=== PATIENT | female | born 2000 | race Caucasian/White ===

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

== ENCOUNTER 2018-10-14 16:57 | Inpatient (IN) ==
[2018-10-14] MEDS ORDERED: Sod Chloride 0.9% Inj 1,000 ML IV.SIG ONE (17:16)
[2018-10-14] MEDS ORDERED: Morphine Inj 4 MG/ML Vial IV.PUSH ONE (17:16)
--- NOTE | 2018-10-14 17:20 | ED ---
HPI General Chief complaint: Urogenital-Female Stated complaint: flank pain Time Seen by Provider: 10/14/18 17:07 Source: patient and other (Friend) Mode of arrival: ambulatory Limitations: no limitations History of Present Illness HPI narrative: 17-year-old female here for evaluation of left flank pain. Patient reports history of kidney stone. She was first diagnosed with this about a year ago and has had intermittent pain which has worsened today. Pain is sharp and radiates to her left lower abdomen, moderate to severe, intermittently worse at times, no modifying factors. No dysuria or hematuria. She has become nauseous but has not vomited. No fevers or chills. She is currently at the end of her menstrual cycle. She denies vaginal discharge other than slight bleeding from her menstrual period. She denies alcohol, tobacco, or illicit drug use. Related Data Home Medications Medication Instructions Recorded Confirmed No Known Home Medications 10/14/18 10/14/18 Allergies Allergy/AdvReac Type Severity Reaction Status Date / Time No Known Allergies Allergy Verified 10/14/18 16:59 Review of Systems ROS: all other systems reviewed are negative [facility] Medical History Medical History History of kidney stones (Acute) Surgical History Surgical History No history of previous surgery (Acute) Social History Social History Substance History: No History of Abuse Smoking Status: Never smoker How Often Do You Have a Drink Containing Alcohol: Never Recent Travel in [facility] within the Last 8 Weeks: No Recent Out of Country Travel within the Last 8 Weeks: No Exam Narrative Exam Narrative: GENERAL: Well-developed, well-nourished, comfortable, no apparent distress. SKIN: Focused skin assessment warm/dry. No rash. HEAD: Atraumatic. Normocephalic. EYES: Pupils equal and round. No scleral icterus. No injection or drainage. ENT: Mucous membranes pink and moist. NECK: Trachea midline. No JVD. CARDIOVASCULAR: Regular rate and rhythm. RESPIRATORY: No accessory muscle use. Clear to auscultation. Breath sounds equal bilaterally. GASTROINTESTINAL: Abdomen soft, non-tender, nondistended. MUSCULOSKELETAL: No obvious deformities. No clubbing. No cyanosis. No edema. Mild left CVA tenderness. No right CVA tenderness. No midline vertebral step- off or tenderness. NEUROLOGICAL: Awake and alert. No obvious cranial nerve deficits. Motor grossly within normal limits. Normal speech. PSYCHIATRIC: Appropriate mood and affect; insight and judgment normal. Course Initial Documented Vital Signs Temperature 98.1 F 10/14/18 17:00 Pulse Rate 94 H 10/14/18 17:00 Respiratory Rate 16 10/14/18 17:00 Blood Pressure 164/85 H 10/14/18 17:00 Pulse Oximetry 98 10/14/18 17:00 Last Documented Vital Signs Temperature 98.1 F 10/14/18 17:00 Pulse Rate 93 H 10/14/18 18:02 Respiratory Rate 20 10/14/18 18:02 Blood Pressure 155/83 H 10/14/18 18:02 Pulse Oximetry 100 10/14/18 18:02 Medical Decision Making MDM Narrative Medical decision making narrative: Vital signs reviewed. CBC shows a slight leukocytosis of 14.7. CMP is essentially unremarkable. UA is not suggestive of UTI. There are calcium oxalate crystals. Urine test is negative. CT abdomen pelvis: CONCLUSION: 1. Severe left hydronephrosis and hydroureter identified with a 7 mm obstructing distal left ureteral calculus. I discussed the case with on-call urologist Dr. Lyons. Patient will benefit from ureteral stenting with possible stone extraction that can be performed tomorrow morning at the [facility] by him. I discussed this with the patient and the patient's mom who is now at the bedside, and she is happy with this plan. We will arrange to transfer the patient to the [facility]. She was given 4 mg of morphine intravenously with significant improvement in her pain. Case discussed with hospitalist Dr. Peña who will admit the patient to his service. Medical Screen Exam Complete: Yes Emergency Medical Condition: Yes Differential Diagnosis Differential Diagnosis: Nephrolithiasis, ureterolithiasis, pyelonephritis, UTI, ovarian cyst, , ectopic , gastritis Lab Data Result diagrams: 10/14/18 17:30 10/14/18 17:30 POC Results POC Urine Results Negative Lab Results 10/14/18 10/14/18 10/14/18 Range/Units 17:21 17:30 17:30 CBC w Diff Auto diff final WBC 14.7 H (4.0-11.0) th/mm3 RBC 4.08 (4.00-5.30) mil/mm3 Hgb 12.8 (11.6-15.3) gm/dL Hct 37.4 (35.0-46.0) % MCV 91.7 (80.0-100.0) fL MCH 31.4 (27.0-34.0) pg MCHC 34.3 (32.0-36.0) % RDW 11.7 (11.6-17.2) % Plt Count 402 (150-450) th/mm3 MPV 8.2 (7.0-11.0) fL Neut % (Auto) 67.5 (16.0-70.0) % Lymph % (Auto) 22.0 (9.0-44.0) % [place] % (Auto) 9.2 H (0.0-8.0) % Eos % (Auto) 0.7 (0.0-4.0) % Baso % (Auto) 0.6 (0.0-2.0) % Neut # (Auto) 9.9 H (1.8-7.7) th/mm3 Lymph # (Auto) 3.2 (1.0-4.8) th/mm3 [place] # (Auto) 1.4 H (0.0-0.9) th/mm3 Eos # (Auto) 0.1 (0.0-0.4) th/mm3 Baso # (Auto) 0.1 (0.0-0.2) th/mm3 WBC Differential . Differential Comment . Sodium 139 (136-145) meq/L Potassium 3.5 (3.5-5.1) meq/L Chloride 107 (98-107) meq/L Carbon Dioxide 24.4 (21.0-32.0) meq/L Anion Gap 8 (5-15) meq/L BUN 12 (7-18) mg/dL Creatinine 0.81 (0.50-1.00) mg/dL Estimated GFR Greater than 89 (>89) mL/min Random Glucose 82 (74-106) mg/dL Calcium 8.7 (8.5-10.1) mg/dL Magnesium 2.1 (1.5-2.5) mg/dL Total Bilirubin 0.6 (0.2-1.0) mg/dL AST 15 L (16-38) U/L ALT 23 (9-42) U/L Alkaline Phosphatase 85 (45-117) U/L Total Protein 7.3 (6.4-8.2) g/dL Albumin 4.4 (3.4-5.0) g/dL Lipase 65 L (73-393) U/L Urine Color Yellow (Yellw/Straw) Urine Clarity Clear (Clear) Urine pH 6.0 (5.0-8.5) Ur Specific [place] Greater/equal 1.030 (1.002-1.035) Urine Protein Trace (Neg-Trace) mg/dL Urine Glucose (UA) Negative (Negative) mg/dL Urine Ketones 40 H (Negative) mg/dL Urine Occult Blood Negative (Negative) Urine Nitrate Negative (Negative) Urine Bilirubin Negative (Negative) Urine Urobilinogen 0.2 (Less than 2) mg/dL Ur Leukocyte Esterase Negative (Negative) Urine RBC 0-3 (0-3) /hpf Urine WBC 0-5 (0-5) /hpf Ur Squamous Epith Cells 0-5 (0-5) /hpf Calcium Oxalate Crystal Few H (None) /hpf Urine Bacteria Few H (None) /hpf Urine Mucus Moderate H (Occasional) /lpf Micro UA Comment Culture not ind Ur Microscopic Review Microscopic reviewed Urine Culture Comments Culture not ind Imaging Data Radiologist's impression: Abdomen/Pelvis CT 10/14/18 17:16 CONCLUSION: 1. Severe left hydronephrosis and hydroureter identified with a 7 mm obstructing distal left ureteral calculus. Discharge Plan Discharge Disposition Patient Disposition: ED Admit(ED Internal Use Only) Discharge Condition Condition: Stable Discharge Order Discharge Orders: ED Use Only Admit Order (Routine); Ordered 10/14/18 Ordered By: Mino Zhang Discharge Details Diagnosis: Hydroureter on left, Ureterolithiasis Physicians Team ED Provider: Mino Zhang Primary Care Provider: Primary Care Physici,Saranya Rxs /Orders / Referrals /Forms Prescriptions: No Action No Known Home Medications RF: 0 Status ED Status: With Doctor
[2018-10-14 17:42] LABS: Baso # (Auto) 0.1 th/mm3 (0.0-0.2); Baso % (Auto) 0.6 % (0.0-2.0); Eos # (Auto) 0.1 th/mm3 (0.0-0.4); Eos % (Auto) 0.7 % (0.0-4.0); Hematocrit 37.4 % (35.0-46.0); Hemoglobin 12.8 gm/dL (11.6-15.3); Lymph # (Auto) 3.2 th/mm3 (1.0-4.8); Mean Corpuscular HGB Conc 34.3 % (32.0-36.0); Mean Corpuscular Hemoglobin 31.4 pg (27.0-34.0); Mean Corpuscular Volume 91.7 fL (80.0-100.0); Mean Platelet Volume 8.2 fL (7.0-11.0); Mono # (Auto) 1.4 th/mm3 (0.0-0.9); Mono % (Auto) 9.2 % (0.0-8.0); Neut # (Auto) 9.9 th/mm3 (1.8-7.7); Neut % (Auto) 67.5 % (16.0-70.0); Platelet Count 402 th/mm3 (150-450); Red Blood Count 4.08 mil/mm3 (4.00-5.30); Red Cell Distribution Width 11.7 % (11.6-17.2); White Blood Count 14.7 th/mm3 (4.0-11.0)
[2018-10-14 17:44] LABS: Bilirubin,Urine Negative (Negative); Clarity,Urine Clear (Clear); Color,Urine Yellow (Yellw/Straw); Glucose,Urine (UA) Negative (Negative); Leukocyte Esterase,Urine Negative (Negative); Nitrite,Urine Negative (Negative); Specific Gravity,Urine Greater/Equal 1.030 (1.002-1.035); Urobilinogen,Urine 0.2 mg/dL (Less than 2)
[2018-10-14 17:49] LABS: Chloride 107 meq/L (98-107); Potassium 3.5 meq/L (3.5-5.1); Sodium 139 meq/L (136-145)
[2018-10-14 17:50] LABS: Calcium Oxalate Crystals,Urine Few /hpf; RBC,Urine 0-3 /hpf (0-3); Squamous Epithelial Cell,Urine 0-5 /hpf (0-5); WBC,Urine 0-5 /hpf (0-5)
[2018-10-14 17:51] LABS: Bacteria,Urine Few /hpf; Mucus,Urine Moderate /lpf (Occasional)
[2018-10-14 17:53] LABS: Albumin 4.4 g/dL (3.4-5.0); Calcium 8.7 mg/dL (8.5-10.1)
[2018-10-14 17:54] LABS: Anion Gap 8 meq/L (5-15); Blood Urea Nitrogen 12 mg/dL (7-18); Carbon Dioxide 24.4 meq/L (21.0-32.0); Glucose,Random 82 mg/dL (74-106); Lipase 65 U/L (73-393); Magnesium 2.1 mg/dL (1.5-2.5)
[2018-10-14 17:57] LABS: Alanine Aminotransferase 23 U/L (9-42); Aspartate Aminotransferase 15 U/L (16-38); Glomerular Filtration Rate Greater Than 89 mL/min (>89)
[2018-10-14 17:58] LABS: Total Protein 7.3 g/dL (6.4-8.2)
--- NOTE | 2018-10-14 17:58 | CT ---
EXAM DATE: 10/14/2018 5:51 PM EST AGE/SEX: 17 years / Female INDICATIONS: Left flank pain that radiates to lower abdomen. CLINICAL DATA: This is the patient's initial encounter. Patient reports that signs and symptoms have been present for 1 week and indicates a pain score of 8/10. MEDICAL/SURGICAL HISTORY: Renal calculi. None. RADIATION DOSE: 4.12 CTDI (mGy) COMPARISON: HH, CT ABDOMEN & PELVIS W/O CONTRAST, 09/28/2017. . TECHNIQUE: Multiple contiguous axial images were obtained through the abdomen. Images were obtained using multiple row detector helical technique. Using automated exposure control and adjustment of the mA and/or kV according to patient size, radiation dose was kept as low as reasonably achievable to o btain optimal diagnostic quality images. DICOM format image data is available electronically for rev iew and comparison. FINDINGS: The lung bases are clear. The osseous structures are intact. There is a 6.9 mm calculus noted at the left distal ureter just proximal to the ureterovesical junction. There is severe left hydronephrosis and hydroureter identified. There is no perinephric stranding. No obvious renal calculi. Urinary blad beena, uterus and adnexa are within normal limits. The spleen, pancreas, adrenals, liver and gallbladde r, small bowel, large bowel and appendix are normal in appearance. No adenopathy or aneurysm. CONCLUSION: 1. Severe left hydronephrosis and hydroureter identified with a 7 mm obstructing distal left uretera l calculus. Electronically signed by: Yomi Fuller MD Board Certified Radiologist 10/14/2018 5:56 PM EST
[2018-10-14 17:59] LABS: Alkaline Phosphatase 85 U/L (45-117)
[2018-10-14] MEDS ORDERED: Acetaminophen 325 MG Tablet PO PRN (19:00)
[2018-10-14] MEDS ORDERED: HYDROmorphone PF Inj 2 MG/ML Vial IV.PUSH PRN (19:02)
[2018-10-14] MEDS: Sod Chloride 0.9% Inj 1,000 ML IV.CONT SCH (19:10)
[2018-10-14] MEDS: HYDROmorphone PF Inj 0.5 MG/0.5 ML Syringe IV.PUSH PRN (20:54)
[2018-10-15] MEDS: Sod Chloride 0.9% Inj 1,000 ML IV.CONT SCH ×3 (05:30→22:11)
[2018-10-15 05:53] LABS: Baso % (Auto) 0.5 % (0.0-2.0); Eos # (Auto) 0.2 th/mm3 (0.0-0.4); Eos % (Auto) 1.9 % (0.0-4.0); Hematocrit 32.5 % (35.0-46.0); Hemoglobin 11.2 gm/dL (11.6-15.3); Lymph # (Auto) 2.8 th/mm3 (1.0-4.8); Lymph % (Auto) 31.2 % (9.0-44.0); Mean Corpuscular HGB Conc 34.3 % (32.0-36.0); Mean Corpuscular Hemoglobin 32.1 pg (27.0-34.0); Mean Corpuscular Volume 93.4 fL (80.0-100.0); Mean Platelet Volume 8.3 fL (7.0-11.0); Mono # (Auto) 0.8 th/mm3 (0.0-0.9); Mono % (Auto) 9.3 % (0.0-8.0); Neut # (Auto) 5.1 th/mm3 (1.8-7.7); Neut % (Auto) 57.1 % (16.0-70.0); Platelet Count 321 th/mm3 (150-450); Red Blood Count 3.48 mil/mm3 (4.00-5.30); Red Cell Distribution Width 11.5 % (11.6-17.2); White Blood Count 8.9 th/mm3 (4.0-11.0)
[2018-10-15 05:55] LABS: Chloride 111 meq/L (98-107); Potassium 3.7 meq/L (3.5-5.1); Sodium 140 meq/L (136-145)
[2018-10-15 06:05] LABS: Alanine Aminotransferase 26 U/L (9-42); Albumin 3.4 g/dL (3.4-5.0); Alkaline Phosphatase 70 U/L (45-117); Anion Gap 7 meq/L (5-15); Aspartate Aminotransferase 20 U/L (16-38); Blood Urea Nitrogen 8 mg/dL (7-18); Calcium 7.5 mg/dL (8.5-10.1); Carbon Dioxide 21.8 meq/L (21.0-32.0); Glomerular Filtration Rate Greater Than 89 mL/min (>89); Glucose,Random 82 mg/dL (74-106); Total Protein 5.7 g/dL (6.4-8.2)
[2018-10-15] MEDS: Lactobacillus Acidophilus/L. Spores Tablet PO SCH ×4 (08:43→19:59)
--- NOTE | 2018-10-15 12:22 | MB ---
cc: Ariel Lyonsn Rosalee DATE: 10/15/2018 HISTORY OF PRESENT ILLNESS: This is a pleasant 17-year-old female who presented with left-sided flank pain. She has a history of a left UVJ stone and CAT scan on admission confirmed the presence of a 7 mm stone causing severe hydronephrosis on the left side. She denies any prior history of stones or any voiding complaints. MEDICAL HISTORY: Denies any history of medical problems other than this kidney stone. PAST SURGICAL HISTORY: No prior surgeries noted. SOCIAL HISTORY: Denies smoking, drinking or using drugs. FAMILY HISTORY: No family history of stones are noted. ALLERGIES: NO KNOWN DRUG ALLERGIES. MEDICATIONS: None. REVIEW OF SYSTEMS: Left-sided flank pain is noted with left CVA tenderness with some nausea and vomiting. The remaining review of systems were reviewed and were negative. PHYSICAL EXAMINATION: VITAL SIGNS TODAY: Temperature 98.7, heart rate 77, respiratory rate 16, 112/70s is the blood pressure. GENERAL: Well-developed, well-nourished, 17-year-old female in no acute distress. HEENT: Normocephalic, atraumatic. Pupils equal, round and reactive to light. Extraocular movements intact. NECK: Supple. HEART: Regular rate and rhythm. LUNGS: Clear. ABDOMEN: Soft, nontender, nondistended. There is left CVA tenderness noted. GENITOURINARY: Normal female external genitalia. EXTREMITIES: Show no cyanosis, clubbing, or edema. NEUROLOGIC: Cranial nerves 2 through 12 are intact. LABORATORY DATA: White count 8.9, hemoglobin 11.2, hematocrit 32.5, platelet count of 321. Sodium 140, potassium 3.7, chloride 111, CO2 21.8, BUN of 8, creatinine 0.55, glucose of 82. Urinalysis shows a 0-3 reds and 0-5 white cells; there are a few calcium oxalate crystals noted. IMAGING STUDIES: CT scan shows a 7 mm stone at the left UVJ with severe hydronephrosis. ASSESSMENT AND PLAN: A 17-year-old female with a 7 mm stone at the left ureterovesical junction causing obstruction and severe hydronephrosis. Recommend cystoscopy with left ureteroscopy, laser lithotripsy and stone extraction, possible stent insertion. Risks and benefits were discussed including bleeding, infection, ureteral injury. The patient is willing to proceed. Continue n.p.o. Thank you for the consult. DO EULALIA Sevilla/randa , 11:51 AM , 12:07 PM
[2018-10-15] MEDS ORDERED: Chlorhexidine Gluconate 2% 1 Pack (2 Cloths) TOPICAL ONE (16:33)
[2018-10-15] MEDS ORDERED: Metoprolol Tartrate 25 MG Tablet PO ONE (16:33)
[2018-10-15] MEDS ORDERED: Sodium Chlor 0.9% Inj 500 ML IV.SIG SCH (17:00)
--- NOTE | 2018-10-15 19:07 | P.HPIM ---
History of Present Illness Service: Hospitalist Primary Care Physician: No Primary Care Physician Chief Complaint: Left flank pain History of Present Illness: Ms. Washburn is a pleasant 17 year old female with a year long kidney stone history who presents to the emergency department at [facility] due to Left sided flank pain. She has had kidney stone related pain for over a year now. However, due to worsening of her symptoms she decided to come to the emergency department. She denies any dysuria , hematuria, fever or chills. She denies any chest pain, shortness of breath, abdominal pain. No changes in bowel habits. Urology was consulted due to CT findings of severe left sided hydronephrosis and hydroureter and a 7mm obstructing ureteral stone. Past medical history: kidney stone for one year. Past surgical history: no significant surgeries in the past. Social history: patient denies using tobacco, alcohol, illicit drugs. Family history: significant for kidney stone in her father. Inpatient Certification Inpatient Certification: I certify that the inpatient services were ordered in accordance with Medicare regulations governing the order. This includes certification that hospital inpatient services are reasonable and necessary and in the case of services not specified as inpatient-only under 42 CFR 419.22(n), that they are appropriately provided as inpatient services in accordance to with the 2-midnight benchmark under 43 CFR 412.3(e) Estimated Total Length of Stay (Days): 2 Plans for Post Hospital Care: Home Review of Systems Review of Systems: all other systems reviewed are negative [facility] Medical History Medical History History of kidney stones (Acute) Surgical History Surgical History No history of previous surgery (Acute) Social History Social History Substance History: No History of Abuse Smoking Status: Never smoker How Often Do You Have a Drink Containing Alcohol: Never Recent Travel in [facility] within the Last 8 Weeks: No Recent Out of Country Travel within the Last 8 Weeks: No Immunization History Tetanus Immunization: >5 Years Medications and Allergies Allergies Allergy/AdvReac Type Severity Reaction Status Date / Time No Known Allergies Allergy Verified 10/14/18 16:59 Home Medications Medication Instructions Recorded Confirmed Type No Known Home Medications 10/14/18 10/14/18 History Active Medications: Active Medications Acetaminophen (Tylenol) 650 mg PO Q4H PRN PRN Reason: Temp > 100.4 Al Hydroxide/Mg Hydroxide (Milk Of Magnesia Liq) 30 ml PO Q12H PRN PRN Reason: Mild Constipation Hydromorphone HCl (Dilaudid Pf Inj) 0.5 mg IV.PUSH Q4H PRN PRN Reason: Pain 3 to 6 Last Admin: 10/14/18 20:54 Dose: 0.5 mg Hydromorphone HCl (Dilaudid Pf Inj) 1 mg IV.PUSH Q4H PRN PRN Reason: Pain 7 to 10 Ceftriaxone Sodium 1,000 mg/ (Sodium Chloride) 100 mls @ 200 mls/hr IV.SIG Q24H [facility] [place] Last Infusion: 10/14/18 19:59 Dose: Infused Sodium Chloride (Ns Inj) 1,000 mls @ 100 mls/hr IV.CONT .Q10H [facility] [place] Last Infusion: 10/15/18 14:04 Dose: 100 mls/hr Lactated Ringer's (Lr 1000 Ml Inj) 1,000 mls @ 30 mls/hr IV.SIG .Q24H [facility] Stop: 10/16/18 16:44 Last Admin: 10/15/18 16:10 Dose: 30 mls/hr Sodium Chloride (Ns Inj) 500 mls @ 30 mls/hr IV.SIG .Q10H [facility] [place] Last Admin: 10/15/18 16:46 Dose: Not Given Lactobacillus Acidophilus (Lactinex) 1 tab PO TID [facility] [place] Last Admin: 10/15/18 13:00 Dose: Not Given Ondansetron HCl (Zofran Inj) 4 mg IV.PUSH Q6H PRN PRN Reason: NAUSEA OR VOMITING Last Admin: 10/14/18 21:30 Dose: 4 mg Sodium Chloride (Ns Flush) 2 ml IV.FLUSH BID [facility] [place] Last Admin: 10/15/18 08:43 Dose: Not Given Sodium Chloride (Ns Flush) 2 ml IV.FLUSH PRN PRN PRN Reason: FLUSH AFTER USING IV ACCESS Physical Exam Vital signs: Vital Signs 10/14/18 19:58 10/14/18 23:23 10/15/18 02:00 Temperature Pulse Rate 98 H 86 Respiratory Rate 18 20 Blood Pressure 149/77 H 128/70 Pulse Oximetry 100 100 98 10/15/18 02:26 10/15/18 05:28 10/15/18 07:08 Temperature 98.7 F Pulse Rate 83 70 77 Respiratory Rate 16 16 16 Blood Pressure 116/64 104/57 L 112/70 Pulse Oximetry 100 100 02/19/19 11:58 10/15/18 16:59 Temperature 99.0 F Pulse Rate 70 84 Respiratory Rate 16 18 Blood Pressure 112/67 121/67 Pulse Oximetry 100 Intake & Output 10/14/18 10/15/18 10/15/18 18:59 06:59 18:59 Intake Total 1000 / 1000 1100 / 1100 Balance 1000 / 1000 1100 / 1100 Weight 48.5 kg Intake: IV 1000 / 1000 1100 / 1100 NS Inj 1,000 ML @ 100 mls/hr IV 1000 / 1000 .CONT .Q10H [facility] Rx#:[id number] NS Inj 1,000 ML @ Wide Open IV. 1000 / 1000 SIG BOLUS ONE Rx#:[id number] Rocephin Inj 1,000 MG In NS Inj 100 / 100 100 ML @ 200 mls/hr IV.SIG Q24H [facility] Rx#:[id number] Narrative: GENERAL: This is a well-nourished, well-developed patient, in no apparent distress. SKIN: No rashes, ecchymoses or lesions. Warm and dry. HEAD: Atraumatic. Normocephalic. No temporal or scalp tenderness. EYES: Pupils equal round and reactive. No injection or drainage. ENT: Nose without bleeding, purulent drainage or septal hematoma. Airway patent. NECK: Trachea midline. No lymphadenopathy. Supple, nontender, no meningeal signs. CARDIOVASCULAR: Regular rate and rhythm without murmurs, gallops, or rubs. No JVD. RESPIRATORY: Clear to auscultation. Breath sounds equal bilaterally. No wheezes , rales, or rhonchi. GASTROINTESTINAL: Abdomen soft, non-tender, nondistended. No guarding. No CVA tenderness noted. MUSCULOSKELETAL: Extremities without clubbing, cyanosis, or edema. NEUROLOGICAL: Awake and alert. Cranial nerves II through XII intact. No focal neurological deficits. Normal speech. Results Labs CBC & Chem 7: 10/15/18 05:35 10/15/18 05:35 Caprini VTE Risk Assessment Caprini VTE Risk Assessment: No/Low Risk (score <= 1) Caprini Risk Assessment Model: Point Value = 1 Point Value = 2 Point Value = 3 Point Value = 5 Age 41-60 Minor surgery BMI > 25 kg/m2 Swollen legs Varicose veins or History of unexplained or recurrent spontaneous Oral contraceptives or hormone replacement Sepsis (< 1 month) Serious lung disease, including pneumonia (< 1 month) Abnormal pulmonary function Acute myocardial infarction Congestive heart failure (< 1 month) History of inflammatory bowel disease Medical patient at bed rest Age 61-74 Arthroscopic surgery Major open surgery (> 45 min) Laparoscopic surgery (> 45 min) Malignancy Confined to bed (> 72 hours) Immobilizing plaster cast Central venous access Age >= 75 History of VTE Family history of VTE Factor V Leiden Prothrombin [id number] Lupus anticoagulant Anticardiolipin antibodies Elevated serum homocysteine Heparin-induced thrombocytopenia Other congenital or acquired thrombophilia Stroke (< 1 month) Elective arthroplasty Hip, pelvis, or leg fracture Acute spinal cord injury (< 1 month) Prophylaxis Regimen: Total Risk Factor Score Risk Level Prophylaxis Regimen 0-1 Low Early ambulation 2 Moderate Order ONE of the following: *Sequential Compression Device (SCD) *Heparin 5000 units SQ BID 3-4 Higher Order ONE of the following medications: *Heparin 5000 units SQ TID *Enoxaparin/Lovenox 40 mg SQ daily (WT < 150 kg, CrCl > 30 mL/min) *Enoxaparin/Lovenox 30 mg SQ daily (WT < 150 kg, CrCl > 10-29 mL/min) *Enoxaparin/Lovenox 30 mg SQ BID (WT < 150 kg, CrCl > 30 mL/min) AND/OR *Sequential Compression Device (SCD) 5 or more Highest Order ONE of the following medications: *Heparin 5000 units SQ TID (Preferred with Epidurals) *Enoxaparin/Lovenox 40 mg SQ daily (WT < 150 kg, CrCl > 30 mL/min) *Enoxaparin/Lovenox 30 mg SQ daily (WT < 150 kg, CrCl > 10-29 mL/min) *Enoxaparin/Lovenox 30 mg SQ BID (WT < 150 kg, CrCl > 30 mL/min) AND *Sequential Compression Device (SCD) Assessment and Plan Plan Ms. Washburn is a pleasant 17 year old female with a history of kidney stone for 1 year who presents to the emergency department due to worsening Left flank pain. She denies any fever or chills. Also denies any dysuria, hematuria. Severe left sided hydronephrosis Severe left sided hydroureter Left ureteral obstructive calculus 7mm -patient is currently on ceftriaxone 1g Q24hrs. -Urology consulted. Patient would likely undergo ureteral stent placement tonight. -0.5mg Dilaudid IV Q4hrs PRN for pain control. -Likely discharge in the morning. -Upon discharge, will continue Bactrim DS for 3 days as well as Tramadol 50mg Q6hrs #10 Full code. Ambulation.
[2018-10-15] MEDS ORDERED: fentaNYL Citrate Inj 250 MCG/5 ML Ampul ONE (19:42)
[2018-10-15] MEDS ORDERED: cefTRIAXone Inj 1,000 MG Vial ONE (19:43)
[2018-10-15] MEDS ORDERED: Neostigmine Inj 5 MG/5 ML Syringe IV.PUSH ONE (19:52)
[2018-10-15] MEDS ORDERED: Lidocaine PF 1% Inj 5 ML Syringe OTHER ONE (19:52)
[2018-10-15] MEDS ORDERED: Glycopyrrolate Inj 1 MG/5 ML Syringe IV.PUSH ONE (19:52)
[2018-10-15] MEDS ORDERED: Iohexol Inj 350 MG/ML 100 ML Bottle (for RAD Diag) IVCONTRAST ONE (20:18)
[2018-10-15] MEDS ORDERED: Acetaminophen 325 MG Tablet PO PRN ×2 (20:36)
[2018-10-15] MEDS ORDERED: Aluminum/Magnesium/Simethacone Susp 30 ML UDC PO PRN (20:36)
[2018-10-15] MEDS ORDERED: Acetaminophen 325 MG Tablet PO ONE (20:45)
[2018-10-15] MEDS ORDERED: Belladonna Alkaloid/Opium 60 MG Supp RECTAL PRN (20:47)
[2018-10-15 22:30] VITALS: RESP 16
[2018-10-16] MEDS: Sod Chloride 0.9% Inj 1,000 ML IV.CONT SCH (02:28)
[2018-10-16] MEDS: HYDROmorphone PF Inj 0.5 MG/0.5 ML Syringe IV.PUSH PRN (05:28)
--- NOTE | 2018-10-16 07:23 | MP ---
cc: Quan Lyons DO DATE OF OPERATION: 10/15/2018 PREOPERATIVE DIAGNOSIS: Distal left ureteral stone with hydronephrosis. POSTOPERATIVE DIAGNOSIS: Distal left ureteral stone with hydronephrosis. PROCEDURE PERFORMED: Cystoscopy, balloon dilatation of left distal ureter, left ureteroscopy with laser lithotripsy, stone extraction with left double-J stent insertion. SURGEON: Quan Lyons DO ANESTHESIA: General endotracheal tube. FLUIDS: 1 L of crystalloid. DRAINS: A 6-Macedonian 22 cm left double-J stent. COMPLICATIONS: There were no complications. SPECIMENS: Stone fragments. These were sent to pathology. CONDITION: The patient tolerated the procedure well and was stable throughout the entire case. INDICATIONS FOR PROCEDURE: Ms. Washburn is a 17-year-old female who presented to the emergency room with findings of a 7 mm distal left ureteral stone on CT scan. Decision was made to bring the patient to the operating room and undergo cystoscopy, left ureteroscopy with laser lithotripsy and stone extraction and possible stent insertion. Risks and benefits were discussed preoperatively with the patient including bleeding, infection, and ureteral injury and she is willing to proceed. DESCRIPTION OF PROCEDURE: The patient was brought to the operating room and identified by myself as Khadra Washburn. She was placed in dorsal lithotomy position, prepped and draped in sterile fashion, received preprocedure antibiotics, and general endotracheal tube anesthesia was administered. A 22-Macedonian cystoscope was inserted in the bladder and pancystoscopy did not reveal any abnormalities. A 0.35 sensor wire was then passed into the left ureteral orifice and up into the kidney under fluoroscopic imaging. Attempt was made to then pass the rigid ureteroscope along the wire up into the ureter, but this was unsuccessful. The cystoscope was then backloaded over the wire and the UroMax balloon dilatation system was utilized. The balloon was placed in the distal ureter and inflated to 12 mmHg and held for 2 minutes. The balloon was then deflated and removed. The rigid ureteroscope was then passed along the wire into the distal ureter and the stone was visualized. Using a 200-micron laser fiber at a setting of ____ fragmentation of the stone was completed. The stone fragments were retrieved with a nitinol basket and sent to pathology. Once the ureter was clear, a decision was made to then place a 6-Macedonian 22 cm left double-J stent. This was placed using the cystoscope over the wire and was placed in good position. The bladder was evacuated and she was awakened and extubated and transferred to recovery room in stable condition. She tolerated the procedure well. She will follow up in the office in 2 weeks to undergo cystoscopy with stent removal at that time. DO EULALIA Sevilla/sv/rr , 08:55 PM , 09:01 PM
[2018-10-16] MEDS: Lactobacillus Acidophilus/L. Spores Tablet PO SCH (08:49)
--- NOTE | 2018-10-16 09:02 | P.DS ---
DS: Providers Date of admission: 10/14/18 19:07 Primary care physician: No Primary Care Physician Brief History from admission: Ms. Washburn is a pleasant 17 year old female with a year long kidney stone history who presents to the emergency department at [facility] due to Left sided flank pain. She has had kidney stone related pain for over a year now. However, due to worsening of her symptoms she decided to come to the emergency department. She denies any dysuria , hematuria, fever or chills. She denies any chest pain, shortness of breath, abdominal pain. No changes in bowel habits. Urology was consulted due to CT findings of severe left sided hydronephrosis and hydroureter and a 7mm obstructing ureteral stone. Past medical history: kidney stone for one year. Past surgical history: no significant surgeries in the past. Social history: patient denies using tobacco, alcohol, illicit drugs. Family history: significant for kidney stone in her father. DS: Summary Patient is a 17 year old female presenting with flank pain secondary to stone and seen by urology where she was taken to OR for stone retraction and placement of ureteral stent. Patient clinically stable for discharge and outpatient follow p urology in 2 weeks for stent retraction. Patient precribed 3 days cipro and pain medication as needed. Patient also to follow up with her PMD as an outpatient in 1-2 weeks. Time Spent with Patient Total time spent providing and/or coordinating discharge services: > 30 min Patient is a 17 year old female presenting with flank pain secondary to stone and seen by urology where she was taken to OR for stone retraction and placement of ureteral stent. Patient clinically stable for discharge and outpatient follow p urology in 2 weeks for stent retraction. Patient precribed 3 days cipro and pain medication as needed. Patient also to follow up with her PMD as an outpatient in 1-2 weeks. Quality: VTE Deep Vein Thrombosis/Pulmonary Embolism Present on Admission: No Exam Narrative Exam Narrative: urology: NO CVA tenderness Results Pending studies at discharge: Pending at discharge 10/15/18 Surgical [PTH] Routine Impressions ITS Impressions Abdomen/Pelvis CT 10/14/18 17:16 CONCLUSION: 1. Severe left hydronephrosis and hydroureter identified with a 7 mm obstructing distal left ureteral calculus. Discharge Plan Discharge Disposition Patient Disposition: 01 Discharge Home Discharge Condition Condition: Stable Discharge Order Discharge Orders: Discharge Order (Routine); Ordered 10/16/18 Ordered By: Rafael Peña Discharge Details Anticipated Discharge Date: 10/16/18 Discharge Comment: scripts are in the chart written by urology. discharge in afternoon by 12. urology will see her before Physicians Team Primary Care Provider: Primary Care Saranya King Attending Provider: Rafael Peña Rxs /Orders / Referrals /Forms Prescriptions: New oxycodone-acetaminophen [Percocet] 5-325 mg tablet 1 tab PO Q4H PRN (Reason: pain) Qty: 18 RF: 0 ciprofloxacin HCl [Cipro] 500 mg tablet 500 mg PO Q12H 3 Days Qty: 6 RF: 0 phenazopyridine [Pyridium] 100 mg tablet 100 mg PO TID PRN (Reason: pain) Qty: 30 RF: 0 No Action No Known Home Medications RF: 0 Referrals: Primary Care Saranya King [Primary Care Provider] - See Instructions Quan Lyons DO [UROLOGY] - See Instructions (please call for follow up appointment in 2 weeks for stent removal) Stand Alone Forms: School Release Discharge Instructions Additional Instructions: please follow up urology outpatient as instructed in 2 weeks. Call for appointment once discharged Status ED Status: Left Department
[2018-10-16 09:57] VITALS: BP 117/66; PULSE 76; TEMP 98.4; O2SAT 100
--- NOTE | 2018-10-16 10:28 | P.PNURO ---
Subjective Patient symptoms today: Pt seen and examined. Feels better. Objective Vital Signs: Vital Signs 10/15/18 11:58 10/15/18 16:59 10/15/18 20:52 Temperature 99.0 F 98.7 F Pulse Rate 70 84 109 H Respiratory Rate 16 18 20 Blood Pressure 112/67 121/67 127/59 L Pulse Oximetry 100 100 10/15/18 21:00 10/15/18 21:30 10/16/18 00:45 Temperature 97.6 F 96.8 F L Pulse Rate 113 H 74 99 H Respiratory Rate 21 16 16 Blood Pressure 119/60 121/75 120/71 Pulse Oximetry 100 100 98 10/16/18 04:25 10/16/18 08:00 Temperature 98.7 F 98.4 F Pulse Rate 91 H 76 Respiratory Rate 16 16 Blood Pressure 112/57 L 117/66 Pulse Oximetry 97 100 Intake & Output 10/15/18 10/16/18 10/16/18 18:59 06:59 18:59 Intake Total 1000 / 1000 1820 / 1820 Output Total 150 / 150 Balance 1000 / 1000 1670 / 1670 Weight 48.5 kg Intake: IV 1000 / 1000 100 / 100 NS Inj 1,000 ML @ 100 mls/hr IV 1000 / 1000 .CONT .Q10H [facility] Rx#:[id number] Rocephin Inj 1,000 MG In NS Inj 100 / 100 100 ML @ 200 mls/hr IV.SIG Q24H [facility] Rx#:[id number] Oral 720 / 720 Anesthesia Amount 1000 / 1000 Output: Urine 150 / 150 Urine/Stool Mix 0 / 0 Other: # Voids 3 Result Diagrams: 10/15/18 05:35 10/15/18 05:35 Medications and IVs: Active Medications Generic Name Dose Route Start Last Admin Trade Name Freq PRN Reason Stop Dose Admin Acetaminophen 325 mg 10/15/18 20:36 Tylenol PO Q4H PRN HEADACHE Acetaminophen 325 mg 10/15/18 20:36 Tylenol PO Q4H PRN FEVER > 101 F Al Hydrox/Mg Hydrox/Simethicone 15 ml 10/15/18 20:36 Mag-Al Plus Susp Liq PO Q4H PRN INDIGESTION Al Hydroxide/Mg Hydroxide 30 ml 10/14/18 19:00 Milk Of Magnesia Liq PO Q12H PRN Mild Constipation Belladonna Alkaloids/Opium 60 mg 10/15/18 20:47 10/15/18 23:02 B & O Supp RECTAL 60 mg Q6HR PRN Administration ABDOMINAL PAIN Hydromorphone HCl 0.5 mg 10/14/18 19:02 10/16/18 05:28 Dilaudid Pf Inj IV.PUSH 0.5 mg Q4H PRN Administration Pain 3 to 6 Hydromorphone HCl 1 mg 10/14/18 19:02 Dilaudid Pf Inj IV.PUSH Q4H PRN Pain 7 to 10 Ceftriaxone Sodium 1,000 mg/ 100 mls @ 200 mls/hr 10/14/18 20:00 10/15/18 22: 30 Sodium Chloride IV.SIG Infused Q24H [facility]TH Infusion Sodium Chloride 1,000 mls @ 100 mls/hr 10/14/18 19:15 10/16/18 02:28 Ns Inj IV.CONT Not Given .Q10H SRIKANTH Lactated Ringer's 1,000 mls @ 30 mls/hr 10/15/18 16:45 10/15/18 16:10 Lr 1000 Ml Inj IV.SIG 10/16/18 16:44 30 mls/hr .Q24H SRIKANTH Administration Sodium Chloride 500 mls @ 30 mls/hr 10/15/18 17:00 10/15/18 16:46 Ns Inj IV.SIG Not Given .Q10H [facility]TH Lactobacillus Acidophilus 1 tab 10/15/18 09:00 10/16/18 08:49 Lactinex PO 1 tab TID [facility]RIK[facility]TH Administration Miscellaneous Information 1 each 10/15/18 21:18 Misc Nursing Information OTHER 10/16/18 20:54 UNSCH PRN SEE LABEL COMMENTS Ondansetron HCl 4 mg 10/14/18 19:00 10/16/18 05:28 Zofran Inj IV.PUSH 4 mg Q6H PRN Administration NAUSEA OR VOMITING Sodium Chloride 2 ml 10/14/18 21:00 10/15/18 22:11 Ns Flush IV.FLUSH 2 ml BID SRI[facility]ANTH Administration Sodium Chloride 2 ml 10/14/18 19:00 Ns Flush IV.FLUSH PRN PRN FLUSH AFTER USING IV ACCESS Objective Remarks: Abd:soft,nt,nd Assessment and Plan - Plan Stable s/p left URS with laser litho and stone extraction with left JJ stent insertion D/C home F/U in 2 weeks for stent removal.
== END 2018-10-16 10:50 | disposition home or self-care (01) | DRG 661 ==
LOC: PHED 16:57 → PHEDA 16:57 → PHEDH 22:42 → H7ONC 10-15 14:30
PROVIDERS: ADMIT Internal Medicine; ATTEND Internal Medicine
DX: N13.2 Hydronephrosis with renal and ureteral calculous obstruction
CPT/HCPCS: 74176; 80053; 81001; 82365; 82370; 83690; 83735; 84703; 85025; 88300; 90761; 90774; 96361; 96374; 99285; A4646; C1726; C1769; C2617; C8952; J0696; J1100; J1170; J2270; J2405; J2704; J2710; J3010; J7030; J7120; Q9950; Q9965; Q9967